=== PATIENT | female | born 1970 | race Caucasian/White ===

== ENCOUNTER 2021-03-17 01:32 | Emergency (ER) | payer MEDICAID ==
[~2021-03-17] VITALS: Ht 142.2 cm; Wt 68.5 kg
[2021-03-17 02:10] VITALS: BP 124/97
--- NOTE | 2021-03-17 02:15 | NUR ---
patient ambulated to the bathroom for urine collection.
--- NOTE | 2021-03-17 02:18 | NUR ---
patient to [facility] ambulatory
[2021-03-17] MEDS ORDERED: NACL 0.9% 2,000 ML IV ONE (02:35)
[2021-03-17] MEDS ORDERED: MORPHINE SULFATE 2 MG/ML SYR IVP ONE (02:35)
[2021-03-17] MEDS ORDERED: ONDANSETRON 4 MG/2 ML VIAL IVP ONE (02:35)
--- NOTE | 2021-03-17 02:54 | NUR ---
PATIENT TO CHAIR A AMBULATORY
[2021-03-17 03:02] LABS: BASOPHILS # (AUTO) 0.1 K/uL (0.00-0.22); EOSINOPHILS # (AUTO) 0.1 K/uL (0-0.4); EOSINOPHILS % (AUTO) 1.1 % (0.0-4.0); HEMATOCRIT 46.5 % (36-48); HEMOGLOBIN 15.7 g/dL (12.0-16.0); LYMPHOCYTES # (AUTO) 2.4 K/uL (2.5-16.5); MEAN CORPUSCULAR HEMOGLOBIN 31 pg (27-31); MEAN CORPUSCULAR HGB CONC 34 g/dL (33-37); MEAN CORPUSCULAR VOLUME 90.5 fL (80-94); MONOCYTES # (AUTO) 0.7 K/uL (0.8-1.0); NEUTROPHILS # (AUTO) 8.6 K/uL (1.8-7.7); NEUTROPHILS % (AUTO) 71.9 % (42.2-75.2); PLATELET COUNT (AUTO) 283 K/uL (140-450); RED BLOOD CELL COUNT(AUTO) 5.14 MIL/uL (4.20-5.40); RED CELL DISTRIBUTION WIDTH 13.1 % (11.6-13.7); WHITE BLOOD COUNT (AUTO) 11.9 K/uL (4.8-10.8)
--- NOTE | 2021-03-17 03:14 | NUR ---
PT TAKEN TO ULTRASOUND VIA WHEELCHAIR WITH US TECH
[2021-03-17 03:22] LABS: ALBUMIN 4.1 g/dL (3.4-5.0); ANION GAP 15.1 (8-16); CARBON DIOXIDE 24.8 mmol/L (21-32); CREATININE 0.8 mg/dL (0.6-1.3); POTASSIUM 3.9 mmol/L (3.5-5.1); TOTAL BILIRUBIN 0.5 mg/dL (0.0-1.0)
[2021-03-17 04:42] LABS: APPEARANCE,URINE CLEAR (CLEAR); BILIRUBIN,URINE NEGATIVE (NEGATIVE); BLOOD, URINE NEGATIVE (NEGATIVE); COLOR,URINE YELLOW (YELLOW); LEUKOCYTE ESTERASE ,URINE NEGATIVE (NEGATIVE); NITRITE, URINE NEGATIVE (NEGATIVE); PH,URINE 5.5 (5.0-9.0); UGLUCOSE NEGATIVE (NEGATIVE)
[2021-03-17] MEDS ORDERED: PANT40EC PO (05:32)
[2021-03-17] MEDS ORDERED: ONDA-188 SL (05:32)
--- NOTE | 2021-03-17 05:45 | NUR ---
IV removed, catheter intact and site benign. Applied folded 4x4 gauze and tape to stop bleeding.
[2021-03-17 05:50] VITALS: BP 114/76
--- NOTE | 2021-03-17 05:50 | NUR ---
Patient discharged with v/s stable. Written and verbal after care instructions given and explained. Patient alert, oriented and verbalized understanding of instructions. Ambulatory with steady gait. All questions addressed prior to discharge. ID band removed. Patient advised to follow up with PMD. Rx of zofran odt and protonix given. Patient educated on indication of medication including possible reaction and side effects. Opportunity to ask questions provided and answered.
== END 2021-03-17 05:50 | disposition home or self-care (01) ==
LOC: MED 01:32
DX: R10.11 Right upper quadrant pain (principal)
CPT/HCPCS: 36415; 74176; 76705; 80053; 81003; 83605; 83690; 84484; 85025; 87040; 93005; 96361; 96374; 96375; 99285; J2270; J2405; Q0092; J7030

== ENCOUNTER 2021-08-18 19:36 | Emergency (ER) | payer MEDICAID ==
[~2021-08-18] VITALS: Ht 142.2 cm; Wt 69.9 kg
[~2021-08-18 19:36] MED LIST: ONDA-188 SL; PANT40EC PO
[2021-08-18 19:53] VITALS: BP 127/70
[2021-08-18 21:24] LABS: BASOPHILS # (AUTO) 0.1 K/uL (0.00-0.22); BASOPHILS % (AUTO) 0.8 % (0.0-2.0); EOSINOPHILS # (AUTO) 0.1 K/uL (0-0.4); EOSINOPHILS % (AUTO) 0.9 % (0.0-4.0); HEMATOCRIT 47.5 % (36-48); HEMOGLOBIN 16.1 g/dL (12.0-16.0); LYMPHOCYTES % (AUTO) 23.4 % (20.5-51.1); MEAN CORPUSCULAR HEMOGLOBIN 31 pg (27-31); MEAN CORPUSCULAR HGB CONC 34 g/dL (33-37); MEAN CORPUSCULAR VOLUME 89.9 fL (80-94); MONOCYTES # (AUTO) 0.6 K/uL (0.8-1.0); MONOCYTES % (AUTO) 6.7 % (1.7-9.3); NEUTROPHILS # (AUTO) 5.8 K/uL (1.8-7.7); NEUTROPHILS % (AUTO) 68.2 % (42.2-75.2); PLATELET COUNT (AUTO) 288 K/uL (140-450); RED BLOOD CELL COUNT(AUTO) 5.28 MIL/uL (4.20-5.40); RED CELL DISTRIBUTION WIDTH 12.8 % (11.6-13.7); WHITE BLOOD COUNT (AUTO) 8.5 K/uL (4.8-10.8)
--- NOTE | 2021-08-18 21:28 | NUR ---
Dr. Kelly examining patient.
[2021-08-18] MEDS ORDERED: ACETAMINOPHEN EXTRA STRENGTH 500 MG TAB PO ONE (21:35)
[2021-08-18] MEDS ORDERED: FAMOTIDINE 20 MG TAB PO ONE (21:35)
[2021-08-18] MEDS ORDERED: ONDANSETRON 4 MG ODT PO ONE (21:35)
[2021-08-18] MEDS ORDERED: ALUMINUM HYD/MAG/SIMETHICONE 30 ML UDC PO ONE (21:35)
[2021-08-18 21:41] LABS: ANION GAP 13.4 (8-16); CARBON DIOXIDE 27.6 mmol/L (21-32); CREATININE 0.7 mg/dL (0.6-1.3); TOTAL BILIRUBIN 1.5 mg/dL (0.0-1.0)
--- NOTE | 2021-08-18 22:51 | NUR ---
Patient returned from US room.
[2021-08-18] MEDS ORDERED: FAMO-92 PO (23:01)
[2021-08-18] MEDS ORDERED: ONDA-188 PO (23:01)
[2021-08-18 23:58] LABS: APPEARANCE,URINE CLOUDY (CLEAR); BILIRUBIN,URINE NEGATIVE (NEGATIVE); BLOOD, URINE NEGATIVE (NEGATIVE); COLOR,URINE BROWN (YELLOW); LEUKOCYTE ESTERASE ,URINE NEGATIVE (NEGATIVE); NITRITE, URINE NEGATIVE (NEGATIVE); UGLUCOSE NEGATIVE (NEGATIVE)
[2021-08-19 00:16] VITALS: BP 122/65
--- NOTE | 2021-08-19 00:16 | NUR ---
Patient discharged with v/s stable. Written and verbal after care instructions given and explained for Gastritis and abdominal pain by Dr. Alejo. Patient alert, oriented and verbalized understanding of instructions. Ambulatory with steady gait. All questions addressed prior to discharge. ID band removed. Patient advised to follow up with PMD. Rx of Pepcid and Zofran given. Patient educated on indication of medication including possible reaction and side effects. Opportunity to ask questions provided and answered.
== END 2021-08-19 00:16 | disposition home or self-care (01) ==
LOC: MED 19:36
DX: R10.13 Epigastric pain (principal); R94.5 Abnormal results of liver function studies; Z90.49 Acquired absence of other specified parts of digestive tract; Z98.890 Other specified postprocedural states; Z79.899 Other long term (current) drug therapy
CPT/HCPCS: 36415; 76705; 80053; 81003; 81025; 83690; 85025; 99284; Q0092; Q0162

== ENCOUNTER 2022-09-09 20:28 | Emergency (ER) | payer MEDICAID, OTHER ==
[~2022-09-09] VITALS: Ht 152.4 cm; Wt 68.0 kg
[~2022-09-09 20:28] MED LIST changes: +FAMO-92 PO; +ONDA-188 PO
[2022-09-09 21:05] VITALS: BP 129/74; PULSE 82; RESP 16; TEMP 97.6; O2SAT 97
--- NOTE | 2022-09-09 21:08 | NUR ---
TO LOBBY A/W BED AMBULATORY
[2022-09-09] MEDS ORDERED: ACETAMINOPHEN EXTRA STRENGTH 500 MG TAB PO ONE (21:50)
[2022-09-09] MEDS ORDERED: ONDANSETRON 4 MG ODT PO ONE (21:50)
[2022-09-09] MEDS ORDERED: ACET-10509 PO (22:01)
[2022-09-09] MEDS ORDERED: ONDA-188 SL (22:01)
[2022-09-09 23:05] VITALS: BP 127/72; PULSE 79; RESP 16; TEMP 97.6; O2SAT 99
--- NOTE | 2022-09-09 23:06 | NUR ---
Patient discharged with v/s stable. Written and verbal after care instructions given and explained. Patient alert, oriented and verbalized understanding of instructions. Ambulatory with steady gait. All questions addressed prior to discharge. ID band removed. Patient advised to follow up with PMD. Rx of Tylenol, and Zofran given. Patient educated on indication of medication including possible reaction and side effects. Opportunity to ask questions provided and answered.
== END 2022-09-09 23:06 | disposition home or self-care (01) ==
LOC: MED 20:28
DX: R11.2 Nausea with vomiting, unspecified (principal); R10.13 Epigastric pain; Z90.49 Acquired absence of other specified parts of digestive tract; Z79.899 Other long term (current) drug therapy
CPT/HCPCS: 99283; Q0162

== ENCOUNTER 2022-12-03 18:22 | Emergency (ER) | payer OTHER ==
[~2022-12-03] VITALS: Ht 152.4 cm; Wt 68.0 kg
[~2022-12-03 18:22] MED LIST changes: +ACET-10509 PO
[2022-12-03 19:18] VITALS: BP 135/88; PULSE 70; RESP 20; TEMP 97.4; O2SAT 100
[2022-12-03] MEDS ORDERED: NACL 0.9% 1,000 ML IV SCH (19:50)
[2022-12-03] MEDS ORDERED: KETOROLAC 30 MG/ML VIAL IVP ONE (19:50)
[2022-12-03] MEDS ORDERED: ALUMINUM HYD/MAG/SIMETHICONE 30 ML UDC PO ONE (19:50)
[2022-12-03] MEDS ORDERED: ONDANSETRON 4 MG/2 ML VIAL IVP ONE (19:50)
[2022-12-03 20:15] VITALS: TEMP 97.4
[2022-12-03 20:20] LABS: APPEARANCE,URINE CLEAR (CLEAR); BILIRUBIN,URINE NEGATIVE (NEGATIVE); BLOOD, URINE NEGATIVE (NEGATIVE); COLOR,URINE YELLOW (YELLOW); LEUKOCYTE ESTERASE ,URINE TRACE (NEGATIVE); NITRITE, URINE NEGATIVE (NEGATIVE); PROTEIN,URINE NEGATIVE (NEGATIVE); UGLUCOSE NEGATIVE (NEGATIVE); UROBILINOGEN,URINE 0.2 EU/dL (0.2 - 1)
[2022-12-03 20:27] LABS: RBC,URINE 0-5 /HPF (0-5)
[2022-12-03 20:28] LABS: BACTERIA,URINE None Seen /HPF (None Seen); MUCUS,URINE 1+ /LPF (None Seen); SQUAMOUS EPITHELIAL CELL,UR 4-10 (MOD) /LPF (0-3 (FEW)); TRICHOMONAS,URINE None Seen /HPF (None Seen); YEAST,URINE None Seen /HPF (None Seen)
[2022-12-03 20:35] LABS: BASOPHILS # (AUTO) 0.1 K/uL (0.00-0.22); BASOPHILS % (AUTO) 0.5 % (0.0-2.0); EOSINOPHILS # (AUTO) 0.2 K/uL (0-0.4); EOSINOPHILS % (AUTO) 1.6 % (0.0-4.0); HEMATOCRIT 39.6 % (36-48); HEMOGLOBIN 13.3 g/dL (12.0-16.0); LYMPHOCYTES # (AUTO) 2.9 K/uL (2.5-16.5); LYMPHOCYTES % (AUTO) 21.6 % (20.5-51.1); MEAN CORPUSCULAR HEMOGLOBIN 30 pg (27-31); MEAN CORPUSCULAR HGB CONC 34 g/dL (33-37); MEAN CORPUSCULAR VOLUME 89.4 fL (80-94); MONOCYTES # (AUTO) 0.9 K/uL (0.8-1.0); MONOCYTES % (AUTO) 6.7 % (1.7-9.3); NEUTROPHILS # (AUTO) 9.2 K/uL (1.8-7.7); NEUTROPHILS % (AUTO) 69.6 % (42.2-75.2); PLATELET COUNT (AUTO) 284 K/uL (140-450); RED BLOOD CELL COUNT(AUTO) 4.43 MIL/uL (4.20-5.40); RED CELL DISTRIBUTION WIDTH 12.9 % (11.6-13.7); WHITE BLOOD COUNT (AUTO) 13.3 K/uL (4.8-10.8)
[2022-12-03 20:55] LABS: ALBUMIN 3.4 g/dL (3.4-5.0); ANION GAP 12.5 (8-16); CALCIUM 8.9 mg/dL (8.5-10.1); CARBON DIOXIDE 26.1 mmol/L (21-32); CREATININE 0.7 mg/dL (0.6-1.3); POTASSIUM 3.6 mmol/L (3.5-5.1); TOTAL BILIRUBIN 0.8 mg/dL (0.0-1.0); TOTAL PROTEIN, SERUM 6.7 g/dL (6.4-8.2)
[2022-12-03] MEDS ORDERED: PANT40EC PO (21:44)
[2022-12-03] MEDS ORDERED: SUCR1TAB35 PO (21:44)
[2022-12-03] MEDS ORDERED: NITR100C7 PO (21:46)
[2022-12-03 22:10] VITALS: BP 105/61; PULSE 66; RESP 18; O2SAT 96
== END 2022-12-03 22:11 | disposition home or self-care (01) ==
LOC: MED 18:22
DX: K29.70 Gastritis, unspecified, without bleeding (principal); Z79.899 Other long term (current) drug therapy
CPT/HCPCS: 36415; 74176; 80053; 81001; 83690; 85025; 87086; 96361; 96374; 96375; 99285; J1885; J2405; J7030

== ENCOUNTER 2022-12-08 09:22 | Emergency (ER) | payer OTHER ==
[~2022-12-08] VITALS: Ht 157.5 cm; Wt 76.2 kg
[~2022-12-08 09:22] MED LIST changes: +NITR100C7 PO; +SUCR1TAB35 PO
[2022-12-08 09:40] VITALS: BP 129/78; PULSE 79; RESP 17; TEMP 97.6; O2SAT 98
[2022-12-08] MEDS ORDERED: KETOROLAC 60 MG/2 ML VIAL IM ONE (10:30)
[2022-12-08 10:44] VITALS: TEMP 97.6
[2022-12-08 11:04] LABS: APPEARANCE,URINE CLEAR (CLEAR); BILIRUBIN,URINE NEGATIVE (NEGATIVE); BLOOD, URINE NEGATIVE (NEGATIVE); COLOR,URINE YELLOW (YELLOW); LEUKOCYTE ESTERASE ,URINE 1+ (NEGATIVE); NITRITE, URINE NEGATIVE (NEGATIVE); PROTEIN,URINE NEGATIVE (NEGATIVE); UGLUCOSE NEGATIVE (NEGATIVE); UROBILINOGEN,URINE 0.2 EU/dL (0.2 - 1)
[2022-12-08 11:09] VITALS: O2SAT 98
[2022-12-08 11:17] LABS: BACTERIA,URINE FEW /HPF (None Seen); RBC,URINE 0-5 /HPF (0-5); SQUAMOUS EPITHELIAL CELL,UR 0-3 (FEW) /LPF (0-3 (FEW)); WBC,URINE 0-5 /HPF (0-5)
[2022-12-08 11:18] LABS: CALCIUM OXALATE CRYSTALS,UR None Seen /HPF (None Seen); MUCUS,URINE 1+ /LPF (None Seen); TRICHOMONAS,URINE None Seen /HPF (None Seen); WHITE BLOOD CELL CASTS,URINE None Seen /LPF (None Seen); YEAST,URINE None Seen /HPF (None Seen)
[2022-12-08] MEDS ORDERED: IBUP-2213 PO (11:55)
[2022-12-08 13:14] VITALS: BP 129/78; PULSE 78; RESP 17; O2SAT 98
== END 2022-12-08 13:14 | disposition home or self-care (01) ==
LOC: MED 09:22
DX: R10.13 Epigastric pain (principal); R51.9 Headache, unspecified; Z79.899 Other long term (current) drug therapy
CPT/HCPCS: 81001; 81025; 87086; 96372; 99283; J1885